=== PATIENT | female | born 1995 | race Caucasian/White ===

== ENCOUNTER 2020-04-24 10:19 | Emergency (ER) | payer OTHER ==
--- NOTE | 2020-04-24 10:35 | ER Document Report ---
ED General - General Chief Complaint: Vomiting Stated Complaint: VOMITING,LIGHTHEADED Time Seen by Provider: 04/24/20 10:35 - HPI Notes: 24-year-old female with a history of vomiting that started last night presents to the emergency room today. Patient states she vomited once last night and felt a little lightheaded. She did vomit again this morning. Last menstrual cycle was 03/17/2020. She is G1, P1. Denies any vaginal bleeding vaginal discharge. Denies any abdominal pain. Patient states she has not had any dysuria frequency urgency. Denies any positive Covid interactions or having a positive test for Covid herself. Denies fevers, chills, chest pain,palpitations, shortness of breath, dyspnea, nausea, vomiting, diarrhea, abdominal pain, hematuria, speech changes, dizziness, syncope, headaches, wheezing, ST, URI, neck pain, weakness, bowel or bladder dysfunction, saddle anesthesia, numbness or tingling in bilateral upper or lower extremities equally, muscle paralysis, weakness in bilateral upper or lower extremities equally or rash. - Related Data Allergies/Adverse Reactions: No Known Allergies Allergy (Verified 04/24/20 11:07) Past Medical History - General Information source: Patient - Social History Smoking Status: Unknown if Ever Smoked Family History: CAD - Father and uncle had MIs before the age of 40 - Past Medical History Cardiac Medical History: Denies: Hx DVT, Hx Pulmonary Embolism Review of Systems - Review of Systems Constitutional: No symptoms reported EENT: No symptoms reported Cardiovascular: No symptoms reported Respiratory: No symptoms reported Gastrointestinal: See HPI Genitourinary: No symptoms reported Female Genitourinary: No symptoms reported Musculoskeletal: No symptoms reported Skin: No symptoms reported Hematologic/Lymphatic: No symptoms reported Neurological/Psychological: No symptoms reported Physical Exam - Vital signs Vitals: Temp Pulse Resp BP Pulse Ox 98.2 F 82 16 119/73 98 04/24/20 10:33 04/24/20 10:33 04/24/20 10:33 04/24/20 10:33 04/24/20 10:33 - Notes Notes: MEDICATIONS: I agree with the patient medications as charted by the RN. ALLERGIES: I agree with the allergies as charted by the RN. PAST MEDICAL HISTORY/PAST SURGICAL HISTORY: Reviewed and agree as charted by RN. SOCIAL HISTORY: Reviewed and agree as charted by RN. FAMILY HISTORY: No significant familial comorbid conditions directly related to patient complaint EXAM: Reviewed vital signs as charted by RN. PHYSICAL EXAMINATION: reviewed vital signs by RN GENERAL: Well-appearing, well-nourished and in no acute distress. HEAD: Atraumatic, normocephalic. EYES: Pupils equal round and reactive to light, extraocular movements intact, conjunctiva are normal. ENT: Nares patent, oropharynx clear without exudates. Moist mucous membranes. NECK: Normal range of motion, supple without lymphadenopathy LUNGS: Breath sounds clear to auscultation bilaterally and equal. No wheezes rales or rhonchi. HEART: Regular rate and rhythm without murmurs ABDOMEN: Soft, nontender, nondistended abdomen. No guarding, no rebound. No masses appreciated. No CVA tenderness appreciated bilaterally Female : deferred Musculoskeletal: Normal range of motion, no pitting or edema. No cyanosis. NEUROLOGICAL: Cranial nerves grossly intact. Normal speech, normal gait. Normal sensory, motor exams PSYCH: Normal mood, normal affect. SKIN: Warm, Dry, normal turgor, no rashes or lesions noted. Course - Re-evaluation Re-evalutation: 04/24/20 11:29 Afebrile vital stable no distress. Nurses notes reviewed. Urinalysis showed leukoesterase, no nitrates proteinuria and hematuria. Urine hCG positive for . Urine culture is pending. Discussed findings with patient that likely her lightheadedness as well as her nausea and vomiting is related to her . She has a benign clinical examination. Patient states she does not want abt any IV fluids or blood work. Patient states she will take p.o. Reglan and see if she can keep anything down. Patient was surprised to hear that she was . Advised her to start vitamins, to establish care with an STUDIO DATA ANALYST, discussed lifestyle changes that she will need to make such as ceasing from any alcoholic beverages, smoking, and illicit drug use. Discussed adding a healthy diet. Patient was agreeable with this plan of care. After performing a Medical Screening Examination, I estimate there is LOW risk for ACUTE APPENDICITIS, BOWEL OBSTRUCTION, ACUTE CHOLECYSTITIS, PERFORATED DIVERTICULITIS, INCARCERATED HERNIA, PANCREATITIS, PELVIC INFLAMMATORY DISEASE, PERFORATED ULCER, ECTOPIC , or TUBO-OVARIAN ABSCESS, thus I consider the discharge disposition reasonable. Also, there is no evidence or peritonitis, sepsis, or toxicity. I have reevaluated this patient multiple times and no significant life threatening changes are noted. The patient and I have discussed the diagnosis and risks, and we agree with discharging home with close follow-up with the understanding that symptoms and presentations can change. We also discussed returning to the Emergency Department immediately if new or worsening symptoms occur. We have discussed the symptoms which are most concerning (e.g., bloody stool, fever, changing or worsening pain, vomiting) that necessitate immediate return. - Vital Signs Vital signs: Temp Pulse Resp BP Pulse Ox 98.2 F 82 16 119/73 98 04/24/20 10:33 04/24/20 10:33 04/24/20 10:33 04/24/20 10:33 04/24/20 10:33 - Laboratory Results Laboratory Results Interpreted: 04/24/20 10:40 Urine Urobilinogen 4.0 H Ur Leukocyte Esterase LARGE H Urine HCG, Qual POSITIVE H Critical Laboratory Results Reviewed: No Critical Results - Radiology Results Critical Radiology Results Reviewed: No Critical Results Discharge - Discharge Clinical Impression: , Cystitis Condition: Stable Disposition: HOME, SELF-CARE Instructions: ([facility]), Vomiting ([facility]) Additional Instructions: Your urine showed to have a little bit of white count, we will send it for urine culture of any interim we will treat you for cystitis which is infection of the urethra with 3-day antibiotic therapy. You did test positive today for . Please start taking daily, avoid any alcohol or smoking. Please follow-up with an STUDIO DATA ANALYST within the next 24 to 48 hours to establish care. Take Reglan as needed for any nausea. Return immediately for any new or worsening symptoms. Follow up with primary care provider, call tomorrow to make followup appointment. Prescriptions: Vits96/Iron Fum/Folic [ Tablet] 1 each PO DAILY #30 tablet Metoclopramide HCl [Reglan 10 mg Tablet] 1 tab PO ASDIR PRN #25 tablet PRN Reason: Referrals: MARIELLA SINHA MD [ACTIVE PROVISIONAL STAFF] - Follow up in 3-5 days ALEXANDRIA SEGURA MD [ACTIVE STAFF] - Follow up as needed
[2020-04-24 11:10] LABS: APPEARANCE,URINE SLIGHTLY-CLOUDY; BILIRUBIN,URINE NEGATIVE (NEGATIVE); COLOR,URINE YELLOW; GLUCOSE, URINE NEGATIVE (NEGATIVE); KETONES,URINE NEGATIVE (NEGATIVE); LEUKOCYTE ESTERASE,URINE LARGE (NEGATIVE); NITRITE,URINE NEGATIVE (NEGATIVE); PROTEIN,URINE NEGATIVE (NEGATIVE)
[2020-04-24] MEDS ORDERED: NORMAL SALINE 1000 ML 1,000 ML IV ONE (11:18)
[2020-04-24] MEDS ORDERED: ONDANSETRON HCL INJ/PF 4 MG/2 ML SDV IV ONE (11:18)
[2020-04-24] MEDS ORDERED: METOCLOPRAMIDE HCL 10 MG TABLET PO ONE (11:23)
[2020-04-24 11:45] VITALS: BP 118/72
== END 2020-04-24 11:44 | disposition home or self-care (01) ==
LOC: ER 10:19
DX: O23.11 Infections of bladder in pregnancy, first trimester (principal); O21.9 Vomiting of pregnancy, unspecified; O26.891 Other specified pregnancy related conditions, first trimester; R42 Dizziness and giddiness; Z3A.01 Less than 8 weeks gestation of pregnancy
CPT/HCPCS: 81001; 81025; 87086; 87088; 99283